=== PATIENT | female | born 1980 | race Caucasian/White ===

== ENCOUNTER 2021-02-10 19:52 | Emergency (ER) | payer BC ==
[~2021-02-10] VITALS: Ht 165.1 cm; Wt 71.2 kg
[2021-02-10 19:52] VITALS: BP 88/39
--- NOTE | 2021-02-10 20:05 | NUR ---
PATIENT AWAITING IN [facility] WITH CARE TEAM
--- NOTE | 2021-02-10 20:59 | NUR ---
PT NOAH ALS. TAKEN TO BED 1
[2021-02-10 21:39] VITALS: BP 100/62
--- NOTE | 2021-02-10 21:44 | NUR ---
PATIENT DC HOME STABLE NOT COMPLAINING OF PAIN VITALS SIGNS IN NORMAL LIMITS ALL DC INSTRUCTION GAVE AND EXPLAINING TO THE PATIENT WE RECOMENDED TO COMING BACK TO ED IF THE SYMPTOMS GET WORSE OR DOENT IMPROVING //Kenisha WELCH
== END 2021-02-10 21:35 | disposition home or self-care (01) ==
LOC: MED 19:52
DX: R42 Dizziness and giddiness (principal)
CPT/HCPCS: 99283